=== PATIENT | female | born 1970 | race African-American/Black ===

== ENCOUNTER 2017-01-09 09:20 | Emergency (ER) | payer OTHER ==
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
--- NOTE | ~2017-01-09 | CR63 ---
[facility] A Service of [facility] RADIOLOGY TEXT RESULTS PATIENT: CHARLENE HORVATH LOCATION: [facility] : 71 UNIT #: [id number] AGE: [address]: Rebceca Mayorga APRN SEX: F ORDER DR: [id number] [facility] [address] [place], [place] [address] [id number] E MR#: [id number] Acc #: [id number] NAME: CHARLENE HORVATH : 1970 SEX: F STUDY DATE/TIME: 01/09/2017 9:40 UNIT: [facility] ROOM: STUDY DESCRIPTION: CR Chest 2 View Attending Physician: Rebecca Mayorga A.P.R.N. Ordering Physician: Dimas Flores M.D. Primary Care Physician: Leonie Rolle M.D. MEDICAL IMAGING REPORT This report is preliminary unless electronic signature is present EXAM Chest 2 views dated 01/09/2017 COMPARISON None. HISTORY Pain in the neck and mid back, right tib-fib pain, left knee pain and chest pain with shortness of air today. FINDINGS 2 views of the chest were obtained. Lungs are well aerated. No patchy dense consolidation, pleural effusion or pneumothorax. Heart, mediastinum and bones do no demonstrate any significant abnormality. IMPRESSION No acute cardiopulmonary disease. Dictated by... Florence Pineda M.D. THIS IS AN ELECTRONICALLY VERIFIED REPORT Florence Pineda M.D. at 01/09/2017 5:26 PM CPR/mjs TD: 01/09/2017 11:16 JOB #: [id number] MEDICAL IMAGING REPORT [facility] A Service [facility] RADIOLOGY TEXT RESULTS PATIENT: CHARLENE HORVATH LOCATION: [facility] : 71 UNIT #: [id number] AGE: [address]: Rebecca Mayorga APRN SEX: F ORDER DR: Page 1 of 1 COPY
--- NOTE | ~2017-01-09 | CR58 ---
[facility] A Service of [facility] RADIOLOGY TEXT RESULTS PATIENT: CHARLENE HORVAHT LOCATION: [facility] : 71 UNIT #: [id number] AGE: [address]: Rebecca Mayorga APRN SEX: F ORDER DR: [id number] [facility] [address] [place], [place] [address] [id number] E MR#: [id number] Acc #: [id number] NAME: CHARLENE HORVATH : 1970 SEX: F STUDY DATE/TIME: 01/09/2017 9:41 UNIT: [facility] ROOM: STUDY DESCRIPTION: CR Cervical Spine 2 or 3 Views Attending Physician: Rebecca Mayorga A.P.R.N. Ordering Physician: Dimas Flores M.D. Primary Care Physician: Leonie Rolle M.D. MEDICAL IMAGING REPORT This report is preliminary unless electronic signature is present EXAM Cervical spine series dated 01/09/2017 COMPARISON Thoracic spine series dated 01/09/2017. HISTORY Pain in the neck and mid back, right tib-fib, left knee and chest today with shortness of air. FINDINGS 3 views of the cervical spine were obtained. No acute displaced fracture or subluxation. No destructive bony mass is seen. Vertebral body and intervertebral disc heights are intact. Pre- and paravertebral soft tissues are within normal limits. C1-2 is unremarkable. IMPRESSION 1. No acute displaced fracture or subluxation. 2. There is straightening of normal cervical curvature which could be due to positioning or muscle spasm. Dictated by... Florence Pineda M.D. THIS IS AN ELECTRONICALLY VERIFIED REPORT Florence Pineda M.D. at 01/09/2017 5:26 PM CPR/mjs TD: 01/09/2017 11:19 JOB #: [id number] [facility] A Service of [facility] RADIOLOGY TEXT RESULTS PATIENT: CHARLENE HORVATH LOCATION: [facility] : 72 UNIT #: [id number] AGE: [address]: Rebecca Mayorga APRN SEX: F ORDER DR: MEDICAL IMAGING REPORT Page 1 of 1 COPY
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
[~2017-01-09 09:20] MED LIST: ANEXSIA 7.5/3251 TA1 PO; BENTYL20 MG PO; CIPRO PO; DOXYCYCLINE HY100 M1 PO; FLAGYL PO; LEVOFLOXACIN500 MG PO; METRONIDAZOLE PO; NICOTINE TRANSD21 MG TD; NO MEDICATIONS; NORCO 10-325 TA1 TAB PO; PANTOPRAZOLE SO40 MG PO; PHENERGAN PO; PHENERGAN PR; PHENERGAN12.5 M2 RC; PHENERGAN25 M1 PO; PROTONIX PO; ZOFRAN PO
== END 2017-01-09 12:12 | disposition home or self-care (01) ==
LOC: CED 09:20
DX: S61.217A Laceration without foreign body of left little finger without damage to nail, initial encounter (principal); S16.1XXA Strain of muscle, fascia and tendon at neck level, initial encounter; S20.219A Contusion of unspecified front wall of thorax, initial encounter; S29.012A Strain of muscle and tendon of back wall of thorax, initial encounter; S80.02XA Contusion of left knee, initial encounter; S80.01XA Contusion of right knee, initial encounter; F17.210 Nicotine dependence, cigarettes, uncomplicated; Z23 Encounter for immunization; Z79.899 Other long term (current) drug therapy; V49.40XA Driver injured in collision with unspecified motor vehicles in traffic accident, initial encounter; Y93.89 Activity, other specified; Y92.410 Unspecified street and highway as the place of occurrence of the external cause
CPT/HCPCS: 12001; 71020; 72040; 72072; 73130; 73560; 73590; 90471; 90715; 99284

== ENCOUNTER 2017-04-23 01:51 | Inpatient (IN) | payer OTHER ==
[~2017-04-23] VITALS: Ht 160 cm; Wt 56.7 kg
--- NOTE | ~2017-04-23 | CT2 ---
[facility] A Service of [facility] RADIOLOGY TEXT RESULTS PATIENT: CHARLENE HORVATH LOCATION: [facility] : 72 UNIT #: [id number] AGE: [address]: Minh Luna MD SEX: F ORDER DR: [id number] [address] [address] [id number] E MR#: [id number] Acc #: [id number] NAME: CHARLENE HORVATH : 1970 SEX: F STUDY DATE/TIME: 04/23/2017 3:57 UNIT: [facility] ROOM: STUDY DESCRIPTION: CT Abd and Pelv W Cont Attending Physician: Jaiden Phillips M.D. Ordering Physician: Jaiden Phillips M.D. Primary Care Physician: Leonie Rolle M.D. MEDICAL IMAGING REPORT This report is preliminary unless electronic signature is present. EXAM CT abdomen and pelvis with contrast INDICATION Generalized abdomen pain, nausea and vomiting, blood in stool since 1:00 a.m. TECHNIQUE The patient was given 100 mL Isovue-370 and axial 5 mm images were obtained through the abdomen and pelvis. There is a comparison study from 04/27/2016. This CT exam was performed with one or more of the following radiation dose reduction techniques: automatic exposure control, adjustment of mA and/or kV according to patient size, and iterative reconstruction. FINDINGS The lung bases are clear. The liver contains a simple cyst which is unchanged and measures about 2 cm in diameter. Gallbladder, spleen, pancreas, adrenal glands and kidneys are normal. The aorta is normal in size and there is no adenopathy. The bowel is abnormal with wall thickening throughout the transverse colon, left colon and sigmoid colon consistent with colitis. The bladder, uterus and adnexal regions are normal. The bones are unremarkable. IMPRESSION The findings are consistent with colitis involving the transverse colon and left colon. The patient had similar findings back in April 2016. Otherwise the study is negative. [facility] A Service [facility] RADIOLOGY TEXT RESULTS PATIENT: CHARLENE HORVATH LOCATION: [facility] : 72 UNIT #: [id number] AGE: [address]: Minh Luna MD SEX: F ORDER DR: Dictated by... Foreign Mayen M.D. THIS IS AN ELECTRONICALLY VERIFIED REPORT Foreign Mayen M.D. at 04/23/2017 5:53 AM CHAS/yamilex TD: 04/23/2017 04:40 JOB #: [id number] MEDICAL IMAGING REPORT Page 1 of 1
--- NOTE | ~2017-04-23 | OR ---
Unit #: [id number] #: [id number] Patient: CHARLENE HORVATH [id number] [address] [place], [place] [address] [id number] I MR#: [id number] NAME: CHARLENE HORVATH ROOM: 238 Date of Procedure: 04/24/2017 Admission Date: 04/23/2017 Surgeon: Azael Noble M.D. : 1970 Attending Physician: Minh Luna M.D. Primary Care Physician: Leonie Rolle M.D. OPERATIVE REPORT PROCEDURE PERFORMED Colonoscopy with biopsy and snare polypectomy. INDICATIONS A 46-year-old female with significant abdominal pain, diarrhea, [QAMARKER] thickening of the colon on the left side on the CT scan. MEDICATIONS Monitored anesthesia. POSTOPERATIVE FINDINGS 1. mucosal inflammation, swelling, and ulceration involving descending and sigmoid colon. Biopsies taken. 2. Ascending colon, cecum, and terminal ileum was normal. 3. was normal. 4. Several polyps in the rectum were snared and sent for histopathology. PLAN Continue with broad-spectrum antibiotics and supportive care and pain medications. DESCRIPTION OF PROCEDURE The patient was explained of the procedure, risks, and benefits along with risks and benefits of anesthesia. She was brought to the endoscopy room. Propofol anesthesia was given. Rectal exam was done, which was normal. Colonoscope was lubricated, passed up the rectum, advanced under direct vision all the way to cecum. Cecum was identified by ileocecal valve and appendiceal orifice. Terminal ileum was intubated, shows normal mucosa. Colonic mucosa was normal in the right side, but left side shows findings as described. Biopsies taken. Rectal showed several small polyps that were snared and sent for histopathology. I retroflexed in the rectum, small hemorrhoids were seen. Gently, the scope was pulled out. She tolerated it well. Dictated by... Frantz Cronin/michel TD: 04/25/2017 03:51 JOB #: [id number] Unit #: [id number] #: [id number] Patient: CHARLENE HORVATH OPERATIVE REPORT Page 1 of 1 X Azael Noble MD PROCEDURE OPERATIVE NOTE
--- NOTE | ~2017-04-23 | EKG ---
PATIENT: CHARLENE HORVATH UNIT #: [id number] Ventricular Rate: 59 BPM Atrial Rate: 59 BPM P-R Interval: 154 ms QRS Duration: 84 ms Q-T Interval: 420 ms QTC Calculation(Bezet): 415 ms P [place]: 70 degrees Calculated R [place]: 20 degrees Calculated T [place]: 38 degrees Diagnosis Line: Sinus bradycardia with marked sinus arrhythmia Diagnosis Line: with occasional Premature ventricular complexes Diagnosis Line: Otherwise normal ECG Diagnosis Line: No previous ECGs available Diagnosis Line: Confirmed by ISRA BRAVO MD ([id number]) on Diagnosis Line: 04/24/2017 9:02:26 AM INTERPRETING MD: SHELLY MEIER
--- NOTE | ~2017-04-23 | HP ---
Unit #: [id number] #: [id number] Patient: CHARLENE HORVATH [id number] [facility] [address] [place], [place] [address] [id number] I MR#: [id number] NAME: CHARLENE HORVATH ROOM: 238 Age: 46 Sex: F Admission Date: 04/23/2017 : 1970 Attending Physician: Minh Luna M.D. Primary Care Physician: Leonie Rolle M.D. HISTORY AND PHYSICAL ADMISSION DIAGNOSES 1. Colitis. 2. Continued tobacco use. HISTORY OF PRESENT ILLNESS Ms. Charlene Horvath is a 46-year-old female who comes to the emergency room with the complaint of acute onset of nausea, vomiting, and diarrhea since last night. She was seen at an outlying emergency room and CT scan was suspicious for colitis. Patient was started on IV antibiotics and transferred to [facility] for further evaluation. She denies any other symptoms and denies any chest pain, shortness of air, dyspnea, headache, dizziness, or syncope. So a 12-point review of systems on this patient basically is negative except as above. PAST MEDICAL HISTORY Colitis in the past. PAST SURGICAL HISTORY 1. Colonoscopy. 2. Tubal ligation. HOME MEDICATIONS Protonix. ALLERGIES No known drug allergies. SOCIAL HISTORY Continues to smoke and has been a smoker all her life. Admits to occasional marijuana use. Denies any IV drugs and denies any alcohol. FAMILY HISTORY Unremarkable. PHYSICAL EXAMINATION GENERAL: Patient is a 46-year-old female in no acute distress. VITAL SIGNS: Blood pressure 137/79, heart rate 69, respirations 16, and temperature 99.4. HEENT: Head is atraumatic. Pupils equal, round, and reactive to light and accommodation. Extraocular muscles intact. Oropharynx clear. NECK: Supple. No mass, no JVD, and no bruits. CHEST: Clear to auscultation bilaterally. CARDIOVASCULAR: S1 and S2. No murmurs. ABDOMEN: Soft, nontender, and nondistended. Unit #: [id number] #: [id number] Patient: CHARLENE HORVATH LOWER EXTREMITIES: Without any cyanosis, clubbing, or edema. NEUROLOGIC: Grossly intact with no focal deficits. DIAGNOSTIC STUDIES LABORATORY: Chemistry significant for blood glucose of 188. Hematology with white count of 20,000. Urinalysis with trace leukocyte esterase. Urine culture pending. IMAGING: CT abdomen and pelvis shows colitis involving the transverse colon and left colon. ASSESSMENT AND PLAN 1. Colitis. Continue Levaquin and Flagyl. Status post Gastroenterology evaluation. Gastroenterology is planning for colonoscopy. 2. Abdominal discomfort with nausea and vomiting. Continue supportive care and symptomatic management with as needed morphine, as needed Phenergan, and IV fluids. Nothing by mouth. 3. Gastrointestinal and deep venous thrombosis prophylaxis. Continue proton pump inhibitor and sequential compression devices. 1. Dictated by Minh Luna M.D. OC/luis fernando TD: 04/23/2017 20:35 JOB #: [id number] HISTORY AND PHYSICAL Page 1 of 1 X Minh Luna MD X HISTORY AND PHYSICAL
--- NOTE | ~2017-04-23 | DS ---
Unit #: [id number] #: [id number] Patient: CHARLENE HORVATH [id number] [address] [place], [place] [address] [id number] I MR#: [id number] NAME: CHARLENE HORVATH ROOM: 238 Age: 46 Sex: F Admission Date: 04/23/2017 : 1970 Discharge Date: 04/25/2017 Attending Physician: Minh Luna M.D. Primary Care Physician: Leonie Rolle M.D. DISCHARGE SUMMARY FINAL DIAGNOSES 1. 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 Patient was admitted with acute onset of nausea, vomiting, and diarrhea for one day prior to coming to the hospital. Patient was started on IV Flagyl. Dr. Noble was consulted. There is a concern for ischemic colitis. Most likely patient has had two episodes of ischemic colitis. Patient will need CT angiogram as an outpatient. This will be scheduled by Dr. Noble. 2. Leukocytosis. Patient still has leukocytosis with a white blood cell count of 13.5. On admission, patient's white blood cell count was 13. We will repeat it in one week. 3. Hypokalemia. Patient had hypokalemia during hospitalization. Potassium was replaced. Patient is doing well. On discharge, patient's potassium is 3.8, and that needs to be checked as an outpatient too. DIAGNOSTIC STUDIES LABORATORY ON DISCHARGE: Sodium 140, potassium 3.8, chloride 113, BUN less than 5, creatinine 0.6, and magnesium 2. Procalcitonin 0.65. WBC 13.5, hemoglobin 11.6, hematocrit 36.9, and platelet count of 240,000. Urine culture is no growth. C. difficile is negative. Stool cultures were negative. Urine drug screen was positive for benzodiazepine and marijuana. Beta hCG screen for was negative. IMAGING: CT scan of the abdomen and pelvis showed findings consistent with colitis involving the transverse colon and left colon. The patient had a similar finding back in April 2016. Otherwise, the study is negative. PHYSICAL EXAMINATION ON DISCHARGE VITAL SIGNS: Blood pressure 103/76, respiratory rate 17, pulse 75, temperature 98.9, and oxygen saturation is 100%. HEENT: Head is normocephalic. CHEST: Fair air entry. CARDIOVASCULAR: Regular rhythm. ABDOMEN: Soft. Mild tenderness. EXTREMITIES: Negative edema. DISCHARGE INSTRUCTIONS 1. Patient is being discharged home in stable condition. 2. Patient will be discharged on Flagyl 500 mg p.o. t.i.d. 3. Continue the rest of the home medications. 4. Follow up with primary care provider in one week. 5. CBC and BMP to be done in one week to evaluate leukocytosis and hypokalemia. Unit #: [id number] #: [id number] Patient: CHARLENE HORVATH 6. Follow up with Dr. Noble in four weeks. Please note, patient will need an outpatient CT angiogram. 1. Dictated by... Frantz Marte TD: 04/28/2017 15:13 JOB #: [id number] DISCHARGE SUMMARY Page 1 of 1 X Leonie Rolle MD X DISCHARGE SUMMARY
--- NOTE | ~2017-04-23 | HP ---
Unit #: [id number] #: [id number] Patient: CHARLENE HORVATH [id number] [address] [place], [place] [address] [id number] I MR#: [id number] NAME: CHARLENE HORVATH ROOM: 238 Age: 46 Sex: F Admission Date: 04/23/2017 : 1970 Attending Physician: Minh Luna M.D. Primary Care Physician: Leonie Rolle M.D. HISTORY AND PHYSICAL A 46-year-old female who has had few admissions in the past, came to ER because of nausea, vomiting and could not tolerate any fluids also. This morning, according to her, she started vomiting, has had multiple vomiting since then, had some diarrhea and abdominal pain. Her abdominal pain, according to her, is level 8/10 at least. She has had this kind of presentation in the past. The patient was seen by Dr. Noble and had EGD and colonoscope done in November 2014. The last admission in the hospital was April. A same kind of presentation at that time and was treated for possible colitis. The patient has followed up with Dr. Noble as outpatient and has been told that she has irritable bowel syndrome. She does not complain of fever. She does complain of chills, generalized weakness and fatigue. The patient does not complain of any dizziness or any syncopal episode. PAST MEDICAL HISTORY 1. History of multiple admissions for intractable nausea and vomiting. 2. Hyperglycemia with no diagnosis of diabetes. 3. History of colitis. Final diagnosis is not done. SOCIAL HISTORY The patient is a smoker, smokes one pack per day and has been smoking for many years. No history of alcohol abuse. She has a past history of marijuana use. The patient lives with 1. FAMILY HISTORY Mother had lung cancer. Patient's father had diabetes. ALLERGIES No known drug allergies. HOME MEDICATIONS 1. Protonix 40 mg p.o. daily. 2. Nicotine patch 21 mg every morning. Not sure whether she is using this. REVIEW OF SYMPTOMS No history of fevers. She does complain of chills and generalized fatigue. She does not have much appetite. No skin rashes. No ear, nose, throat problem. The rest is as per history of presenting illness. PHYSICAL EXAMINATION GENERAL APPEARANCE: The patient is laying in bed, does not seem to be in any respiratory distress. Unit #: [id number] #: [id number] Patient: CHARLENE HORVATH VITAL SIGNS: Blood pressure 135/94. Respiratory rate 10. Pulse 63. Temperature 98.0. Oxygen saturation 95%. HEENT: Normocephalic. Eye movements are normal. NECK: Supple. CHEST: Fair air entry. No additional sounds. CARDIOVASCULAR: S1, S2 positive. Regular rhythm. ABDOMEN: Soft. Mild tenderness all over. No organomegaly. No mass is felt. EXTREMITIES: Negative edema. CENTRAL NERVOUS SYSTEM: The patient is awake, alert, oriented x3. No focal neurologic deficit. DIAGNOSTIC STUDIES LABORATORY: WBC 9.5, hemoglobin 13.6, hematocrit 41.8, platelet count 276. BMP shows sodium 141, potassium 3.4, chloride 105, BUN 14, creatinine 0.7. Liver enzymes are normal. Amylase and lipase are normal. Urinalysis shows 2+ protein and 1+ bacteria. ASSESSMENT AND PLAN The patient is being admitted 'to' [sic]: 1. Intractable vomiting with nausea. 2. Abdominal pain. 3. Hypokalemia. 4. Possible UTI. 5. Hyperglycemia. 6. Questionable colitis. PLAN Admit to med/surg unit. Hydration with IV fluids is being started. Potassium will be replaced. Hemoglobin A1C will be done. Accu-Chek a.c. and h.s. will be done. Dr. Noble will be consulted. C. diff. will be ordered. IV Rocephin one gram daily is being started. Plan of care has been discussed with patient at length. There is a possibility she does have a history of irritable bowel syndrome. Nicotine patch is being started. Tobacco cessation counseling has been done. Please refer to progress note for further orders. Dictated by Frantz Marte TD: 08/13/2016 12:23 JOB #: [id number] HISTORY AND PHYSICAL Page 1 of 1 X Leonie Rolle MD X HISTORY AND PHYSICAL
[2017-04-23 02:42] LABS: BASOPHIL% 0.2 % (0-2.5); HEMATOCRIT 44.3 % (35.0-45.0); HEMOGLOBIN 14.1 gm/dL (12.0-16.0); LYMPHOCYTE# 0.9 X10e3 (1.0-3.5); LYMPHOCYTE% 4.3 % (17.0-45.0); MEAN CELL VOLUME 84.3 FL (83-96); MEAN CORPUSCULAR HEMOGLOBIN 26.8 PG (28-34); MEAN CORPUSCULAR HGB CONC 31.9 g/dL (30-36); MEAN PLATELET VOLUME 7.8 FL (6.5-11.5); MONOCYTE# 1.1 X10e3 (0-1.0); MONOCYTE% 5.3 % (3.0-12.0); NEUTROPHIL# 18.3 X10e3 (1.5-7.1); NEUTROPHIL% 90.2 % (40-75); PLATELET COUNT 313 X10e3 (140-420); RED BLOOD COUNT 5.26 X10e (3.90-5.30); RED CELL DISTRIBUTION WIDTH 13.9 % (11.0-15.5); WHITE BLOOD COUNT 20.3 X10e3 (4.0-10.5)
[2017-04-23 02:44] LABS: DIFF IND NO
[2017-04-23 02:59] LABS: ALBUMIN SERUM 4.5 g/dL (3.5-5.0); BILIRUBIN, DIRECT 0.1 mg/dL (0.0-0.2); BILIRUBIN,INDIRECT 0.5 mg/dL (0.0-0.9); BILIRUBIN,TOTAL 0.6 mg/dL (0.2-2.0); BUN/CREATININE RATIO 24.28; CALCIUM SERUM 9.7 mg/dL (8.4-10.2); CREATININE SERUM 0.7 mg/dL (0.6-1.4); GLOM FILT RATE Estimated 121.3 mL/min (>60); POTASSIUM 3.7 mmol/L (3.5-5.1)
[2017-04-23 03:02] LABS: INR 1.1; PARTIAL THROMBOPLASTIN TIME <20.0 SECONDS (25.6-38.1); PROTHROMBIN TIME (PATIENT) 12.4 SECONDS (9.5-12.4)
[2017-04-23 03:38] LABS: URINE SOURCE CLEAN CATCH
[2017-04-23 03:40] LABS: URINE APPEARANCE TURBID; URINE BLOOD 3+ (NEG); URINE COLOR DK YELLOW; URINE GLUCOSE NEG (NORM); URINE KETONE 1+ (NEG); URINE LEUKOCYTE ESTERASE TRACE (NEG); URINE NITRATE NEG (NEG); URINE PROTEIN 1+ (NEG); URINE SPECIFIC GRAVITY >=1.030 (1.003-1.035)
[2017-04-23 03:41] LABS: MICRO INDICATED? YES; URINE BILIRUBIN NEG (NEG)
[2017-04-23 03:45] LABS: CULTURE INDICATED? YES; URINE BACTERIA 1+ (NEG); URINE MUCUS PRESENT; URINE SQUAMOUS EPITHELIAL CELL MODERATE /[HPF]
[2017-04-23 03:50] LABS: AMPHETAMINE NEG (NEG); BARBITURATES NEG (NEG); BENZODIAZEPINES POS (NEG); COCAINE NEG (NEG); MARIJUANA POS (NEG); OPIATES NEG (NEG); TRICYCLIC ANTIDEPRESSANTS NEG (NEG); U METHADONE NEG (NEG)
[2017-04-23] MEDS ORDERED: PROTONIX PO (12:26)
[2017-04-24 04:46] LABS: BASOPHIL# 0.1 X10e3 (0-0.3); BASOPHIL% 0.3 % (0-2.5); EOSINOPHIL% 0.1 % (0.0-7.0); HEMATOCRIT 38.4 % (35.0-45.0); HEMOGLOBIN 12.3 gm/dL (12.0-16.0); LYMPHOCYTE# 2.1 X10e3 (1.0-3.5); LYMPHOCYTE% 13.1 % (17.0-45.0); MEAN CELL VOLUME 83.4 FL (83-96); MEAN CORPUSCULAR HEMOGLOBIN 26.7 PG (28-34); MEAN PLATELET VOLUME 7.4 FL (6.5-11.5); MONOCYTE# 1.1 X10e3 (0-1.0); MONOCYTE% 7.2 % (3.0-12.0); NEUTROPHIL# 12.4 X10e3 (1.5-7.1); NEUTROPHIL% 79.3 % (40-75); PLATELET COUNT 245 X10e3 (140-420); RED CELL DISTRIBUTION WIDTH 14.1 % (11.0-15.5); WHITE BLOOD COUNT 15.7 X10e3 (4.0-10.5)
[2017-04-24 04:47] LABS: DIFF IND YES
[2017-04-24 04:57] LABS: PLATELET ESTIMATE NORMAL (NORMAL); RBC NORMAL YES
[2017-04-24 06:54] LABS: ALBUMIN SERUM 3.4 g/dL (3.5-5.0); BILIRUBIN,TOTAL 0.5 mg/dL (0.2-2.0); BUN/CREATININE RATIO 8.88; CALCIUM SERUM 8.2 mg/dL (8.4-10.2); CREATININE SERUM 0.9 mg/dL (0.6-1.4); GLOM FILT RATE Estimated 89.6 mL/min (>60); POTASSIUM 3.3 mmol/L (3.5-5.1); PROTEIN TOTAL SERUM 6.5 g/dL (6.0-8.3)
[2017-04-24 20:15] LABS: MAGNESIUM 2.1 mg/dL (1.6-3.0); POTASSIUM 3.1 mmol/L (3.5-5.1)
[2017-04-25 06:11] LABS: HEMATOCRIT 36.9 % (35.0-45.0); HEMOGLOBIN 11.6 gm/dL (12.0-16.0); MEAN CELL VOLUME 83.6 FL (83-96); MEAN CORPUSCULAR HEMOGLOBIN 26.3 PG (28-34); MEAN CORPUSCULAR HGB CONC 31.4 g/dL (30-36); MEAN PLATELET VOLUME 7.6 FL (6.5-11.5); RED BLOOD COUNT 4.41 X10e (3.90-5.30); RED CELL DISTRIBUTION WIDTH 13.8 % (11.0-15.5); WHITE BLOOD COUNT 13.5 X10e3 (4.0-10.5)
[2017-04-25 07:37] LABS: ALBUMIN SERUM 2.9 g/dL (3.5-5.0); ALKALINE PHOSPHATASE 49 U/L (32-92); ALT (SGPT) 13 U/L (10-40); AST (SGOT) 13 U/L (10-42); BILIRUBIN,TOTAL 0.5 mg/dL (0.2-2.0); BLOOD UREA NITROGEN <5 mg/dL (9-23); BUN/CREATININE RATIO 8.33; CALCIUM SERUM 7.8 mg/dL (8.4-10.2); CARBON DIOXIDE 23 mmol/L (22-31); CHLORIDE 113 mmol/L (100-111); CREATININE SERUM 0.6 mg/dL (0.6-1.4); GLOM FILT RATE Estimated 127.6 mL/min (>60); GLUCOSE FASTING 119 mg/dL (70-110); POTASSIUM 3.8 mmol/L (3.5-5.1); PROTEIN TOTAL SERUM 5.8 g/dL (6.0-8.3); SODIUM 140 mmol/L (135-145)
[2017-04-25 07:38] LABS: PROCALCITONIN 0.65 NG/ML
[2017-04-25] MEDS ORDERED: FLAGYL250 M1 PO (16:33)
== END 2017-04-25 17:26 | disposition home or self-care (01) | DRG 394 ==
LOC: SED 01:51 → C2A 05:35 → SEDOF 05:35 → SED 05:37 → SEDOF 05:37 → C2A 11:50 → SEDOF 11:50 → C2A 04-25 17:26
PROVIDERS: Emergency Medicine; Hospitalist; Internal Medicine
PROC: 0DBM8ZX Excision of Descending Colon, Via Natural or Artificial Opening Endoscopic, Diagnostic (ICD-10-PCS; principal; 2017-04-24 14:58)
PROC: 0DBN8ZX Excision of Sigmoid Colon, Via Natural or Artificial Opening Endoscopic, Diagnostic (ICD-10-PCS; 2017-04-24 14:58)
PROC: 0DBP8ZX Excision of Rectum, Via Natural or Artificial Opening Endoscopic, Diagnostic (ICD-10-PCS; 2017-04-24 14:58)
DX: K55.9 Vascular disorder of intestine, unspecified (principal); N39.0 Urinary tract infection, site not specified; K63.3 Ulcer of intestine; R11.2 Nausea with vomiting, unspecified; F17.210 Nicotine dependence, cigarettes, uncomplicated; R10.9 Unspecified abdominal pain; E87.6 Hypokalemia; Z98.51 Tubal ligation status; K62.1 Rectal polyp; D72.829 Elevated white blood cell count, unspecified
CPT/HCPCS: 36415; 74177; 80048; 80053; 80076; 80307; 81003; 82308; 83690; 83735; 84132; 84703; 85025; 85027; 85610; 85730; 87045; 87086; 87427; 87493; 87899; 88305; 93005; 96361; 96374; 96375; 99285; C9113; J1956; J2270; J2405; J2543; J2550; Q9967